=== PATIENT | male | born 1930 | race Caucasian/White ===

== ENCOUNTER 2018-12-25 11:30 | Emergency (ER) | payer MEDICARE, OTHER ==
[~2018-12-25] VITALS: Ht 160 cm; Wt 72.0 kg
[2018-12-25] MEDS ORDERED: bacitracin 15gm ointment TP ONE (14:05)
[2018-12-25 16:30] VITALS: BP 148/91
== END 2018-12-25 16:32 | disposition home or self-care (01) ==
LOC: ER 11:30
DX: S01.81XA Laceration without foreign body of other part of head, initial encounter (principal); S09.90XA Unspecified injury of head, initial encounter; W07.XXXA Fall from chair, initial encounter; Y93.89 Activity, other specified; Y92.090 Kitchen in other non-institutional residence as the place of occurrence of the external cause; Y99.9 Unspecified external cause status
CPT/HCPCS: 70450; 70486; 72125; 99284